=== PATIENT | female | born 1995 | race Caucasian/White ===

== ENCOUNTER 2023-11-08 17:28 | Emergency (ER) | payer BC ==
[~2023-11-08] VITALS: Ht 165.1 cm; Wt 63.6 kg
[2023-11-08 17:35] VITALS: BP 106/71; PULSE 98; RESP 16; O2SAT 99
== END 2023-11-08 18:21 | disposition left against medical advice (07) ==
LOC: ER 17:28
DX: R10.9 Unspecified abdominal pain (principal); R11.2 Nausea with vomiting, unspecified; R19.7 Diarrhea, unspecified; Z53.21 Procedure and treatment not carried out due to patient leaving prior to being seen by health care provider